=== PATIENT | female | born 1990 | race Caucasian/White ===

== ENCOUNTER 2017-12-13 14:11 | Observation (INO) | payer OTHER ==
[~2017-12-13] VITALS: Ht 165.1 cm; Wt 63.5 kg
[~2017-12-13 14:11] MED LIST: MULTIVITAMIN1 TAB PO
--- NOTE | 2017-12-13 14:17 | ED GENERAL ADULT ---
See Addendum History of Present Illness General Chief Complaint: General Adult Stated Complaint: BIBA RESP DISTRESS Source: EMS Exam Limitations: clinical condition Triage Nurses Notes Reviewed? yes HPI: Patient was witnessed to be walking into a package store but as she opened up the door she dropped to the ground. Upon EMS arrival patient was unresponsive with dilated pupils. Patient was given 1.6 mg of Narcan without any relief. Patient did not have any ID on her. Patient is withdrawing to painful stimuli. Unable to obtain any history. Patient was having very shallow breathing and EMS was assisting her ventilation with BVM. (Bk ZAMORANO,Jose G Fuller) Vital Signs & Intake/Output Vital Signs & Intake/Output Vital Signs Date Time Temp Pulse Resp B/P B/P Pulse O2 O2 Flow FiO2 Mean Ox Delivery Rate 12/14 0847 98.0 91 18 120/75 98 Room Air 12/14 0652 97 Room Air 12/14 0639 98.7 81 18 93/67 97 Room Air 12/14 0617 100.5 85 18 85/64 95 Room Air 12/14 0421 100.0 88 18 108/54 98 Room Air 12/14 0023 98.4 110 18 89/69 98 Room Air 12/13 2300 97.8 80 18 116/72 99 Room Air 12/13 2128 97.4 80 18 114/73 99 Room Air 12/13 1731 84 18 104/66 99 Room Air 12/13 1640 97.0 80 18 102/62 98 Room Air 12/13 1558 75 18 90/56 97 Room Air 12/13 1523 97.0 76 18 90/57 98 Room Air 12/13 1504 100 Non 100% ReBreather 12/13 1502 80 16 102/61 98 Room Air Room Air 12/13 1427 95.6 77 12 100/77 100 Non 100% ReBreather ED Intake and Output 12/14 0000 12/13 1200 Intake Total Output Total 1100 Balance -1100 Output, Urine 1100 Patient 140 lb Weight Weight Reported by Patient Measurement Method Allergies Coded Allergies: NO KNOWN ALLERGIES (01/01/16) (Babita ZAMORANO,Sascha Adkins) Past History Travel History Traveled to [place] past 21 day No Medical History Any Pertinent Medical History? see below for history Surgical History Surgical History: UNOBTAINABLE Psychosocial History Tobacco Use: Cognitive Impairment Family History Hx Contributory? No (Bk ZAMORANO,Jose G Fuller) Review of Systems Review of Systems Constitutional: Reports: see HPI. (Bk ZAMORANO,Jose G Fuller) Physical Exam Physical Exam General Appearance: moderate distress Head: atraumatic Eyes: Bilateral: other (DILATED, SLUGGISH). Ears, Nose, Throat: normal pharynx, normal ENT inspection Neck: supple Respiratory: normal breath sounds, no respiratory distress, lungs clear Cardiovascular: regular rate/rhythm, normal peripheral pulses Gastrointestinal: normal bowel sounds, soft Back: normal inspection Extremities: normal inspection, normal capillary refill, normal range of motion, no edema Neurologic/Psych: WITHDRAWALS TO PAINFULL STIMULAE Skin: intact, normal color, warm/dry Core Measures ACS in differential dx? No CVA/TIA Diagnosis: No Sepsis Present: No Sepsis Focused Exam Completed? No (Bk ZAMORANO,Jose G Fuller) Progress Differential Diagnoses I considered the following diagnoses in my evaluation of the patient: [Trauma, ingestion, electrolyte abnormality, seizure] Diagnostic Imaging: Viewed by Me: CT Scan. Discussed w/RAD: CT Scan. Radiology Impression: PATIENT: leonidas bajwa PRESENT AGE: 22 PATIENT ACCOUNT NO: [id number] : [birth year] LOCATION: [facility] ORDERING PHYSICIAN: Jose G Bourgeois MD SERVICE DATE: 12/13/17 EXAM TYPE: CAT - CT CERV SPINE WO IV CONTRAST; CT HEAD WO IV CONTRAST EXAMINATION: CT OF THE HEAD WITHOUT CONTRAST CT OF THE CERVICAL SPINE WITHOUT CONTRAST CLINICAL INFORMATION: Found unresponsive on sidewalk.. COMPARISON: None. TECHNIQUE: Contiguous axial imaging was performed from the skullbase to vertex without intravenous administration of contrast. Coronal reformations of the head were obtained. Contiguous axial imaging was then performed from the skull base down to the thoracic inlet. Coronal and sagittal reformations of the cervical spine were obtained. DLP: 956.72 mGy-cm. FINDINGS: CT scan of the head: There is no evidence of acute intracranial hemorrhage or territorial infarction. No abnormal mass-effect or midline shift is seen. Graham to white matter differentiation is well preserved. No extra-axial fluid collections are identified. The ventricles are normal in size. There is no abnormal attenuation within the brain parenchyma. The osseous structures and soft tissues are normal. The mastoid air cells and visualized portions of the paranasal sinuses are well-aerated. CT scan of the cervical spine: Normal alignment is seen with no evidence of acute fracture or dislocation. Craniocervical junction and atlantoaxial articulations are intact. Prevertebral soft tissues are normal in thickness. The included soft tissues of the neck and lung apices are unremarkable. IMPRESSION: CT scan of the head: No acute intracranial pathology. CT scan of the cervical spine: No evidence of cervical spine fracture or malalignment. DICTATED BY: Brittny Storm MD DATE/ TIME DICTATED:12/13/171457 HEALTH AND SAFETY SPECIALIST:JAUN DATE/TIME TRANSCRIBED: 12/13/171457 CONFIDENTIAL, DO NOT COPY WITHOUT APPROPRIATE AUTHORIZATION. < Electronically signed in Other Vendor System> SIGNED BY: Brittny Storm MD 12/13/17 1507 Initial ED EKG: SR AT 88, NO ISCHEMIC CHANGES Hand-Off Endorsed To: Sascha Jc MD Endorsed Time: 1899 Pending: other (SOBRIETY) Comments: Patient has a good gag reflex. Her ABG showed no signs of acidosis. We'll continue to closely monitor patient. (Bk ZAMORANO,Jose G Fuller) Differential Diagnoses I considered the following diagnoses in my evaluation of the patient: Plan of Care: Orders Procedure Date/time Status Regular Diet 12/14 B Active Discharge Patient 12/14 0711 Active CIWA 12/13 2132 Active Restraint- Discontinue 12/[address] in observation 12/13 1619 Active ED Holding Orders 12/13 1619 Active Patient Data 12/13 1619 Active Vital Signs 12/13 1619 Active Code Status 12/13 1619 Active Add-on Test (ER Only) 12/13 1544 Active TROPONIN LEVEL 12/13 1434 Complete Intake & Output 12/13 1424 Active EKG 12/13 1421 Active ARTERIAL BLOOD GAS (GEN) 12/13 1419 Active Restraint- Medical 12/13 1419 Active URINE DRUGS OF ABUSE 12/13 1416 Complete URINALYSIS 12/13 1416 Complete HUMAN BETA HCG SCREEN 12/13 1416 Complete ETHANOL 12/13 1416 Complete COMPREHENSIVE METABOLIC PANEL 12/13 1416 Complete CBC WITHOUT DIFFERENTIAL 12/13 1416 Complete [place], Insertion/Removal/Asses 12/13 1414 Active CULTURE,URINE 12/13 1414 Active Laboratory Tests 12/13/17 1458: Urine Opiates Screen < 100, Methadone Screen 43, Barbiturate Screen < 60, Ur Phencyclidine Scrn < 6.00, Amphetamines Screen < 100, U Benzodiazepines Scrn < 85, Urine Cocaine Screen 710 H, Urine Cannabis Screen < 5.00, Urine Color STRAW , Urine Clarity CLEAR, Urine pH 6.0, Ur Specific Murdock <= 1.005, Urine Protein NEG, Urine Ketones NEG, Urine Nitrite NEG, Urine Bilirubin NEG, Urine Urobilinogen 0.2, Ur Leukocyte Esterase NEG, Ur Microscopic SEDIMENT EXAMINED, Ur Epithelial Cells RARE, Urine Hemoglobin TRACE-LYSED, Urine Glucose NEG 12/13/17 1434: Anion Gap 14, Estimated GFR > 60, BUN/Creatinine Ratio 14.3, Glucose 66, Calcium 9.3, Total Bilirubin 0.2, AST 35, ALT 21, Alkaline Phosphatase 62, Troponin I < 0.01, Total Protein 7.0, Albumin 4.5, Globulin 2.5, Albumin/Globulin Ratio 1.8, Total Beta HCG NEGATIVE, CBC w Diff NO MAN DIFF REQ, RBC 4.69, MCV 94.2, MCH 30.7, MCHC 32.6 L, RDW 13.8, MPV 8.2, Gran % 58.8, Lymphocytes % 32.2, Monocytes % 7.9, Eosinophils % 0.5, Basophils % 0.6, Absolute Granulocytes 6.0, Absolute Lymphocytes 3.3, Absolute Monocytes 0.8 H, Absolute Eosinophils 0.1, Absolute Basophils 0.1, Serum Alcohol 430.0 12/13/17 1425: pH 7.33 L, pCO2 41, pO2 72 L, HCO3 21, ABG O2 Sat (Measured) 92.0 L, Carboxyhemoglobin 1.9, O2 Concentration % 100%, O2 Delivery Method NRB, Phlebotomy Draw Site RIGHT RADIAL Microbiology 12/13 1458 URINE ROUT: Urine Culture - RES Comments: 12/13/2017 7:55:21 PM patient signed out to me by Dr. Bourgeois at shift exchange specialist. Currently the patient is sleeping. 12/13/2017 9:35:14 PM patient is now awake and answering questions. She states she feels like she is going through alcohol withdrawal. She is also feeling hungry and requesting something to eat. Clinically she appears stable at this time and I do not feel she is manifesting any significant signs of alcohol withdrawal currently. 12/14/2017 6:53:15 AM LUIS EDUARDO is awake alert and conversant. Her speech is clear and her gait is stable. She has declined crisis evaluation, denying SI or HI. She is amenable to an outpatient detox program. She has no apparent tremors on examination. Her RN states that her CIWA score is 0. (Babita ZAMORANO,Sascha Adkins) Departure Departure Condition: Stable (Bk ZAMORANO,Jose G Fuller) Departure Disposition: HOME OR SELF CARE Clinical Impression Primary Impression: Alcohol intoxication Qualifiers: Complication of substance-induced condition: uncomplicated Qualified Code: F10.920 - Alcohol use, unspecified with intoxication, uncomplicated Secondary Impressions: Cocaine abuse Additional Instructions: Follow-up with the [place] primary care practice at and arrange for follow-up appointment for general medical evaluation as soon as possible. Consider a detox program to help you with your alcohol and cocaine use. Return if any concerns or sudden worsening. Departure Forms: Customer Survey DETOX FACILITIES LIST General Discharge Information (Sascha Jc MD) Critical Care Note Critical Care Note Critical Care Time: non-applicable (Bk ZAMORANO,Jose G Fuller) ED Attending Observation Initial Observation Note: I have seen and personally examined leonidas bajwa on 12/13/17 at 1621. I agree with the current emergency department documentation. The disposition (admission or discharge) is uncertain at this time, she needs a period of observation for the following reason(s): [Patient will need very close monitoring for her respiratory status given her severely intoxicated state.] The ED Nurse caring for this patient has been personally informed as to what the patient is being observed for. Observation Re-Evaluation: I have reevaluated leonidas bajwa on 12/13/17 at 1820. The physical findings that support the continued need to observe this patient include [patient is waking up more however she is still heavily intoxicated and cannot tell us her name. Patient continues to need very close observation for alcohol withdrawal, respiratory status. Her lungs are clear to auscultation bilaterally.]. Observation Discharge: I have reevaluated LUIS EDUARDO LEON on 12/14/17 at 0735. The patient is: ([X]): Stable for discharge (): To be admitted to Nursing Floor (): To be placed in Observation on Nursing Floor (): For transfer to other facility The patient was being observed for [SEVERE ALCOHOL INTOXICATIONO] As a result of that observation, I have determined [PT DOES NOT WANT TO TALK TO ANYONE ABOUTSTOPPING ALCOHOL, SHE IS AWAKE ALERT AND ORIENTED AND IS STABLE FOR DISCHARGE.]. (Bk ZAMORANO,Jose G Fuller)
[2017-12-13 14:51] LABS: ABSOLUTE BASOPHIL COUNT 0.1 /CUMM (0.0-0.2); ABSOLUTE EOSINOPHIL COUNT 0.1 /CUMM (0.0-0.7); ABSOLUTE LYMPH COUNT 3.3 /CUMM (1.2-3.4); ABSOLUTE MONOCYTE COUNT 0.8 /CUMM (0.10-0.60); BASOPHIL % 0.6 % (0.0-2.0); EOSINOPHIL % 0.5 % (0-5); GRANULOCYTE % 58.8 % (42.2-75.2); HEMATOCRIT 44.2 % (37-47); MEAN CORPUSCULAR HGB 30.7 PG (27.0-31.0); MEAN CORPUSCULAR HGB CONC 32.6 G/DL (33.0-37.0); MEAN CORPUSCULAR VOLUME 94.2 FL (81.0-99.0); MEAN PLATELET VOLUME 8.2 FL (7.4-10.4); PLATELET COUNT 371 /CUMM (130-400); RBC DISTRIBUTION WIDTH 13.8 % (11.5-14.5); RED BLOOD CELL CT 4.69 /CUMM (4.20-5.40); WHITE BLOOD CELL COUNT 10.3 /CUMM (4.8-10.8)
--- NOTE | 2017-12-13 15:07 | CT SCAN REPORT ---
EXAMINATION: CT OF THE HEAD WITHOUT CONTRAST CT OF THE CERVICAL SPINE WITHOUT CONTRAST CLINICAL INFORMATION: Found unresponsive on sidewalk.. COMPARISON: None. TECHNIQUE: Contiguous axial imaging was performed from the skullbase to vertex without intravenous administration of contrast. Coronal reformations of the head were obtained. Contiguous axial imaging was then performed from the skull base down to the thoracic inlet. Coronal and sagittal reformations of the cervical spine were obtained. DLP: 956.72 mGy-cm. FINDINGS: CT scan of the head: There is no evidence of acute intracranial hemorrhage or territorial infarction. No abnormal mass-effect or midline shift is seen. Graham to white matter differentiation is well preserved. No extra-axial fluid collections are identified. The ventricles are normal in size. There is no abnormal attenuation within the brain parenchyma. The osseous structures and soft tissues are normal. The mastoid air cells and visualized portions of the paranasal sinuses are well-aerated. CT scan of the cervical spine: Normal alignment is seen with no evidence of acute fracture or dislocation. Craniocervical junction and atlantoaxial articulations are intact. Prevertebral soft tissues are normal in thickness. The included soft tissues of the neck and lung apices are unremarkable. IMPRESSION: CT scan of the head: No acute intracranial pathology. CT scan of the cervical spine: No evidence of cervical spine fracture or malalignment.
[2017-12-14 10:12] VITALS: BP 118/78
== END 2017-12-14 10:17 ==
LOC: ERH → ERHI 14:50 → ERH 16:15 → EDBEDREQ 12-14 06:38 → EDBEDREQSVC 12-14 07:05 → ERHI 12-14 10:17
PROVIDERS: Emergency Medicine
DX: F10.920 Alcohol use, unspecified with intoxication, uncomplicated (principal); R06.03 Acute respiratory distress; G31.84 Mild cognitive impairment of uncertain or unknown etiology; F14.10 Cocaine abuse, uncomplicated
CPT/HCPCS: 1387; 6090; 80307; 81001; 87086; 93005; 93010; 94799; G0378; G0480